=== PATIENT | female | born 1965 | race Two or more races ===

== ENCOUNTER 2017-07-01 13:51 | Day surgery (SDC) | payer OTHER ==
[2017-07-01] MEDS ORDERED: MIDAZOLAM 1 MG/ML 2 ML INJ ×2 (17:08)
[2017-07-01] MEDS ORDERED: FENTAnyl 50 MCG/ML VIAL (17:08)
== END 2017-07-01 17:56 | disposition home or self-care (01) ==
LOC: GIL 13:51
DX: Z12.11 Encounter for screening for malignant neoplasm of colon (principal); D12.3 Benign neoplasm of transverse colon; K64.8 Other hemorrhoids; E78.5 Hyperlipidemia, unspecified
CPT/HCPCS: 45380; 84703; 88305